=== PATIENT | male | born 1980 | race American Indian/Alaskan Native ===

== ENCOUNTER 2019-05-17 12:09 | Inpatient (IN) | payer SELFPAY ==
--- NOTE | 2019-05-17 12:18 | Emergency Department Report ---
Blank Doc - Documentation Documentation: This is a 38-year-old male that presents with SOB. Was dx with PNA in [place]. This initial assessment/diagnostic orders/clinical plan/treatment(s) is/are subject to change based on patient's health status, clinical progression and re- assessment by fellow clinical providers in the ED. Further treatment and workup at subsequent clinical providers discretion. Patient/guardians urged not to elope from the ED as their condition may be serious if not clinically assessed and managed. Initial orders include: 1- Patient sent to main ed for further evaluation and treatment 2- O2 2 L 3- labs 4- EKG 5- CXR
--- NOTE | 2019-05-17 13:08 | XRay Report ---
CHEST 1 VIEW 05/17/2019 12:35 PM INDICATION / CLINICAL INFORMATION: Dyspnea. COMPARISON: None available. FINDINGS: SUPPORT DEVICES: None. HEART / MEDIASTINUM: No significant abnormality. LUNGS / PLEURA: There are patchy bilateral mid and lower lung parenchymal opacities. There is no sign ificant pleural effusion. No pneumothorax. ADDITIONAL FINDINGS: No significant additional findings. IMPRESSION: 1. Patchy bilateral mid and lower lung parenchymal opacities, probably reflecting atypical infectious process. Signer Name: Shorty Rodriguez MD Signed: 05/17/2019 1:04 PM Workstation Name: [id number]
[2019-05-17 13:16] LABS: Hematocrit 37.1 % (35.5-45.6); Mean Corpuscular HGB Conc 35 % (32-34); Mean Corpuscular Volume 84 fl (84-94); Platelet Count 370 K/mm3 (140-440); Red Blood Count 4.42 M/mm3 (3.65-5.03); Red Cell Distribution Width 13.5 % (13.2-15.2)
[2019-05-17 13:24] LABS: INR 1.14 (0.87-1.13)
[2019-05-17 13:25] LABS: Partial Thromboplastin Time 39.9 Sec. (24.2-36.6)
[2019-05-17 13:34] LABS: BUN/Creatinine Ratio 7; Blood Urea Nitrogen 8 mg/dL (9-20); Calcium 9.7 mg/dL (8.4-10.2); Hemolysis Index 11
--- NOTE | 2019-05-17 13:45 | Emergency Department Report ---
ED General Adult HPI - General Chief complaint: Dyspnea/Respdistress Stated complaint: CHEST PAIN Time Seen by Provider: 05/17/19 12:16 Source: patient Mode of arrival: Ambulatory Limitations: No Limitations - History of Present Illness Initial comments: The patient presents to the emergency department with a chief complaint of shortness of breath that started Wednesday. The patient was admitted to the hospital in [facility] and Kanika multi lobar pneumonia and left AMA yesterday. Upon the patient's arrival his O2 sats are 85%. Patient states that echocardiogram and CT of the chest were done at [facility] and showed no blood clots. -: Sudden Radiation: non-radiation Severity scale (0 -10): 2 Quality: aching Consistency: constant Improves with: none Worsens with: movement Associated Symptoms: denies other symptoms Treatments Prior to Arrival: none - Related Data Home Medications Medication Instructions Recorded Confirmed Last Taken ALBUTEROL Inhaler (OR & NICU) 2 puff IH QID PRN 05/17/19 05/17/19 05/17/19 [Proair] ALBUTEROL NEB's [Proventil] 2.5 mg IH QID PRN 05/17/19 05/17/19 05/17/19 Allergies Allergy/AdvReac Type Severity Reaction Status Date / Time No Known Allergies Allergy Verified 05/17/19 12:18 ED Review of Systems ROS: Stated complaint: CHEST PAIN Other details as noted in HPI Constitutional: denies: chills, fever Eyes: denies: eye pain, eye discharge, vision change ENT: denies: ear pain, throat pain Respiratory: shortness of breath. denies: cough, wheezing Cardiovascular: denies: chest pain, palpitations Endocrine: no symptoms reported Gastrointestinal: denies: abdominal pain, nausea, diarrhea Genitourinary: denies: urgency, dysuria Musculoskeletal: denies: back pain, joint swelling, arthralgia Skin: denies: rash, lesions Neurological: denies: headache, weakness, paresthesias Psychiatric: denies: anxiety, depression Hematological/Lymphatic: denies: easy bleeding, easy bruising ED Past Medical Hx - Past Medical History Previous Medical History?: Yes Hx Asthma: Yes - Surgical History Past Surgical History?: Yes Additional Surgical History: Jaw reconstruction - Social History Smoking Status: Current Every Day Smoker Substance Use Type: Marijuana - Medications Home Medications: Home Medications Medication Instructions Recorded Confirmed Last Taken Type ALBUTEROL Inhaler (OR & NICU) 2 puff IH QID PRN 05/17/19 05/17/19 05/17/19 History [Proair] ALBUTEROL NEB's [Proventil] 2.5 mg IH QID PRN 05/17/19 05/17/19 05/17/19 History ED Physical Exam - General Limitations: No Limitations General appearance: alert, in no apparent distress - Head Head exam: Present: atraumatic, normocephalic - Eye Eye exam: Present: normal appearance, PERRL, EOMI - ENT ENT exam: Present: mucous membranes moist - Neck Neck exam: Present: normal inspection - Respiratory Respiratory exam: Present: normal lung sounds bilaterally, rales. Absent: respiratory distress - Cardiovascular Cardiovascular Exam: Present: normal rhythm, tachycardia. Absent: systolic murmur, diastolic murmur, rubs, gallop - GI/Abdominal GI/Abdominal exam: Present: soft, normal bowel sounds. Absent: distended, tenderness - Rectal Rectal exam: Present: deferred - Extremities Exam Extremities exam: Present: normal inspection - Back Exam Back exam: Present: normal inspection - Neurological Exam Neurological exam: Present: alert, oriented X3, CN II-XII intact. Absent: motor sensory deficit - Psychiatric Psychiatric exam: Present: normal affect, normal mood - Skin Skin exam: Present: warm, dry, intact, normal color. Absent: rash ED Course Vital Signs 05/17/19 12:16 Temperature 98.6 F Pulse Rate 108 H Respiratory 26 H Rate Blood Pressure 193/108 O2 Sat by Pulse 90 Oximetry ED Medical Decision Making - Lab Data Result diagrams: 05/17/19 12:50 05/17/19 12:50 Lab Results 05/17/19 05/17/19 05/17/19 Range/Units 12:50 12:50 12:50 WBC 13.2 H (4.5-11.0) K/mm3 RBC 4.42 (3.65-5.03) M/mm3 Hgb 13.0 (11.8-15.2) gm/dl Hct 37.1 (35.5-45.6) % MCV 84 (84-94) fl MCH 29 (28-32) pg MCHC 35 H (32-34) % RDW 13.5 (13.2-15.2) % Plt Count 370 (140-440) K/mm3 PT 14.3 (12.2-14.9) Sec. INR 1.14 H (0.87-1.13) APTT 39.9 H (24.2-36.6) Sec. Sodium 135 L (137-145) mmol/L Potassium 3.4 L (3.6-5.0) mmol/L Chloride 95.4 L (98-107) mmol/L Carbon Dioxide 26 (22-30) mmol/L Anion Gap 17 mmol/L BUN 8 L (9-20) mg/dL Creatinine 1.1 (0.8-1.5) mg/dL Estimated GFR > 60 ml/min BUN/Creatinine Ratio 7 % Glucose 111 H (75-100) mg/dL Calcium 9.7 (8.4-10.2) mg/dL Troponin T < 0.010 (0.00-0.029) ng/mL NT-Pro-B Natriuret Pep 55.57 (0-450) pg/mL - EKG Data -: EKG Interpreted by Me EKG shows normal: sinus rhythm Rate: normal - Radiology Data Radiology results: report reviewed - Medical Decision Making The patient's medical records were reviewed for the [facility] which show that the patient had echocardiogram done on May 15 shows a normal left ventricular size with the visually estimated ejection fraction of the 60-64% Abnormal diastolic function Tricuspid valve regurgitation and trace in nature CT chest angiogram shows groundglass infiltrates of the upper and mid lungs with no focal pulmonary consolidations or masses no PE Sputum cultures show gram negative rods Results discussed with patient Critical Care Time: Yes Critical care time in (mins) excluding proc time.: 45 Critical care attestation.: If time is entered above; I have spent that time in minutes in the direct care of this critically ill patient, excluding procedure time. ED Disposition Clinical Impression: Hypoxia, Pneumonia Disposition: [id number] OP ADMIT IP TO THIS HOSP Is pt being admited?: Yes Does the pt Need Aspirin: No Condition: Stable
[2019-05-17 15:18] LABS: Basophils % (Manual) 0 % (0.0-1.8); Total Cells Counted 100
[2019-05-17 15:19] LABS: Anisocytosis Few; Stomatocytes Few
[2019-05-17 15:20] LABS: Target Cells Few
[2019-05-17] MEDS ORDERED: LEVAQUIN 500MG/100ML 500 MG/100 ML BAG IV ONE (16:02)
--- NOTE | 2019-05-17 17:33 | History and Physical Report ---
History of Present Illness Chief complaint: I cant breathe,and i feel bad History of present illness: 38 YO Male with Nicotine Dependence, Obesity Hypoventilation Syndrome, Asthma presents to ED for evaluation. Pt states that he has experienced shortness of breath over the past 3 days with persistent symptoms over the same time frame. Pt was seen and evaluated at an outside hospital in [place], [place] on yesterday an diagnosed with Pneumonia, but left AMA. Pt travelled to [place], [place] via private vehicle. Pt presents to [facility] for further care and evaluation. Pt seen and evaluated in ED and found to have Bilateral Pneumonia complicated by Acute Hypoxemic Respiratory Failure with pulse oximetry of 85% on room air in ED. Pt initiated on Pneumonia protocol and admitted to medical floor. Pt denies fever, chills, CP, Palpitations, NVD, Trauma, Unilateral leg swelling, calf pain, hemoptysis, unintentional weight loss,night sweats, individual/family history of DVT/PE/Bleeding, BLood Clotting Disorders. NO prior admission for review. No medication listed for reconciliation at time of admission. CTA chest pending at time of admission. Past History Past Medical History: other (Asthma) Past Surgical History: No surgical history, Other (reviewed) Social history: , lives with family, smoking Family history: no significant family history (reviewed) Medications and Allergies Allergies Allergy/AdvReac Type Severity Reaction Status Date / Time No Known Allergies Allergy Verified 05/17/19 12:18 Home Medications Medication Instructions Recorded Confirmed Last Taken Type ALBUTEROL Inhaler (OR & NICU) 2 puff IH QID PRN 05/17/19 05/17/19 05/17/19 History [Proair] ALBUTEROL NEB's [Proventil] 2.5 mg IH QID PRN 05/17/19 05/17/19 05/17/19 History Active Meds: Active Medications Albuterol (Proventil) 2.5 mg IH QID PRN PRN Reason: Wheezing Review of Systems Constitutional: no weight loss, no weight gain, no fever, no chills Ears, nose, mouth and throat: no ear pain, no ear discharge, no tinnitis, no decreased hearing, no nose pain Cardiovascular: no chest pain, no orthopnea, no palpitations, no rapid/irregular heart beat Respiratory: shortness of breath, no cough, no cough with sputum, no congestion, no wheezing Gastrointestinal: no nausea, no vomiting, no diarrhea, no constipation Genitourinary Male: no hematuria, no flank pain, no discharge, no urinary frequency, no nocturia Rectal: no pain, no incontinence, no bleeding Musculoskeletal: no neck stiffness, no neck pain, no shooting arm pain, no arm numbness/tingling, no shooting leg pain Integumentary: no rash, no pruritis, no redness, no sores, no wounds Neurological: no transient paralysis, no paralysis, no weakness, no parathesias, no numbness, no tingling Psychiatric: no anxiety, no memory loss, no change in sleep habits, no sleep disturbances, no hypersomnia, no change in appetite Endocrine: no cold intolerance, no heat intolerance, no polyphagia, no excessive thirst, no polyuria, no nocturia Hematologic/Lymphatic: no easy bruising, no easy bleeding Allergic/Immunologic: no urticaria, no allergic rhinitis Exam - Constitutional Vitals: Temp Pulse Resp BP Pulse Ox 98.6 F 108 H 26 H 193/108 90 05/17/19 12:16 05/17/19 12:16 05/17/19 12:16 05/17/19 12:16 05/17/19 16:25 General appearance: Present: mild distress - EENT Eyes: Present: PERRL ENT: hearing intact, clear oral mucosa - Neck Neck: Present: supple, normal ROM - Respiratory Respiratory effort: normal Respiratory: bilateral: diminished, wheezing - Cardiovascular Heart Sounds: Present: S1 & S2. Absent: rub, click - Extremities Extremities: pulses symmetrical, No edema Peripheral Pulses: within normal limits - Abdominal General gastrointestinal: Present: soft, non-tender, non-distended, normal bowel sounds Male genitourinary: Present: normal - Integumentary Integumentary: Present: clear, warm, dry - Musculoskeletal Musculoskeletal: gait normal, strength equal bilaterally - Psychiatric Psychiatric: appropriate mood/affect, intact judgment & insight - Neurologic Neurologic: CNII-XII intact, moves all extremities Results - Labs CBC & Chem 7: 05/17/19 12:50 05/17/19 12:50 Labs: Abnormal lab results 05/17/19 05/17/19 05/17/19 Range/Units 12:50 12:50 12:50 WBC 13.2 H (4.5-11.0) K/mm3 MCHC 35 H (32-34) % Seg Neuts % (Manual) 92.0 H (40.0-70.0) % Lymphocytes % (Manual) 6.0 L (13.4-35.0) % Seg Neutrophils # Man 12.1 H (1.8-7.7) K/mm3 Lymphocytes # (Manual) 0.8 L (1.2-5.4) K/mm3 INR 1.14 H (0.87-1.13) APTT 39.9 H (24.2-36.6) Sec. POC ABG pH (7.35-7.45) POC ABG pCO2 (35-45) POC ABG pO2 (80-105) Sodium 135 L (137-145) mmol/L Potassium 3.4 L (3.6-5.0) mmol/L Chloride 95.4 L (98-107) mmol/L BUN 8 L (9-20) mg/dL Glucose 111 H (75-100) mg/dL 05/17/19 Range/Units 16:27 WBC (4.5-11.0) K/mm3 MCHC (32-34) % Seg Neuts % (Manual) (40.0-70.0) % Lymphocytes % (Manual) (13.4-35.0) % Seg Neutrophils # Man (1.8-7.7) K/mm3 Lymphocytes # (Manual) (1.2-5.4) K/mm3 INR (0.87-1.13) APTT (24.2-36.6) Sec. POC ABG pH 7.495 H (7.35-7.45) POC ABG pCO2 32.8 L (35-45) POC ABG pO2 71 L (80-105) Sodium (137-145) mmol/L Potassium (3.6-5.0) mmol/L Chloride (98-107) mmol/L BUN (9-20) mg/dL Glucose (75-100) mg/dL Assessment and Plan - Patient Problems (1) Pneumonia Current Visit: Yes Status: Acute Qualifiers: Laterality: bilateral Lung location: upper lobe of lung Plan to address problem: Pneumonia protocol: IV antibiotic therapy, influenza/HIV testing, supplemental oxygen, nebulizer therapy, NIPPV as clinically indicated, (2) Respiratory failure Current Visit: Yes Status: Acute Qualifiers: Chronicity: acute Respiratory failure complication: hypoxia Qualified Code(s): J96.01 - Acute respiratory failure with hypoxia Plan to address problem: Supplemental oxygen, nebulizer therapy, Supplemental oxygen via NRB mask, ABG, NIPPV as clinically indicated, CTA chest, pulse oximetry (3) Nicotine dependence unspecified, with withdrawal Current Visit: Yes Status: Acute Qualifiers: Nicotine product type: cigarettes Qualified Code(s): F17.213 - Nicotine dependence, cigarettes, with withdrawal Plan to address problem: Smoking cessation counseling: +15minutes (4) SIRS (systemic inflammatory response syndrome) Current Visit: Yes Status: Acute Plan to address problem: Iv antibiotic therapy, CBC, CMP, blood cultures, Rapid HIV, IVF resuscitation therapy (5) Hyponatremia Current Visit: Yes Status: Acute Plan to address problem: IVF resuscitation therapy, repeat bmp in am. (6) Hypokalemia Current Visit: Yes Status: Acute Plan to address problem: dietary repletion, (7) DVT prophylaxis Current Visit: Yes Status: Acute Plan to address problem: SCD to BLE while in bed, prophylactic lovenox
[2019-05-17] MEDS ORDERED: PROVENTIL IH PRN (17:37)
[2019-05-17] MEDS ORDERED: TYLENOL PO ONE (18:34)
[2019-05-17] MEDS ORDERED: TYLENOL ONE (18:38)
[2019-05-17] MEDS ORDERED: SODIUM CHLORIDE FLUSH SYRINGE 10 ML IV PRN (19:29)
[2019-05-17] MEDS ORDERED: ZOFRAN IV PRN (19:29)
[2019-05-17] MEDS ORDERED: NACL 0.9% 1000 ML IV ONE (19:29)
[2019-05-17] MEDS: DUONEB *Not for PRN Use IH SCH (19:54)
[2019-05-17] MEDS: ROCEPHIN/NS 2 GM/100 ML 2 GM/100 ML BAG IV SCH (21:35)
[2019-05-17] MEDS: NACL 0.9% 1000 ML 1,000 ML IV SCH (21:38)
[2019-05-17] MEDS: SODIUM CHLORIDE FLUSH SYRINGE 10 ML IV SCH (22:52)
[2019-05-17] MEDS: ZITHROMAX 500 MG in NACL 0.9% 250ML 250 ML IV SCH (22:53)
[2019-05-18] MEDS: TYLENOL PO PRN ×4 (05:10→22:59)
[2019-05-18] MEDS: NACL 0.9% 1000 ML 1,000 ML IV SCH ×3 (06:00→23:00)
[2019-05-18 06:13] LABS: Hematocrit 34.5 % (35.5-45.6); Mean Corpuscular HGB Conc 35 % (32-34); Mean Corpuscular Volume 83 fl (84-94); Platelet Count 365 K/mm3 (140-440); Red Blood Count 4.15 M/mm3 (3.65-5.03); Red Cell Distribution Width 13.3 % (13.2-15.2)
[2019-05-18 06:29] LABS: BUN/Creatinine Ratio 6; Blood Urea Nitrogen 7 mg/dL (9-20); Calcium 8.7 mg/dL (8.4-10.2); Hemolysis Index 0
--- NOTE | 2019-05-18 07:54 | Progress Note ---
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, improving with fluids Hypokalemia; repleted DVT prophylaxis early ambulation History Interval history: Review of systems Constitutional: Continues to have fevers, and malaise CVS: No chest pain, no orthopnea, no dyspnea on exertion, no pedal edema GI: No abdominal pain, no diarrhea, no vomiting, no constipation Respiratory: no wheezing, no coughing Hospitalist Physical - Physical exam Narrative exam: General.: Appears well, no distress, nontoxic HEENT: Moist mucous membranes, extraocular muscles intact, no lymphadenopathy Neck: supple Cardiac: S1-S2 heard Lungs: clear to auscultation bilaterally Abdomen: soft , nontender, nondistended, bowel sounds positive Extremities: no edema clubbing or cyanosis Skin: no rash or lesions Neurologic: no gross focal deficits Psych: calm, and cooperative - Constitutional Vitals: Temp Pulse Resp BP Pulse Ox 102.8 F H 117 H 24 140/68 91 05/18/19 04:44 05/18/19 04:44 05/18/19 04:44 05/18/19 04:44 05/18/19 04:44 General appearance: Present: mild distress Results - Labs CBC & Chem 7: 05/18/19 05:15 05/18/19 05:15 Labs: Laboratory Last Values WBC 12.6 K/mm3 (4.5-11.0) H 05/18/19 05:15 RBC 4.15 M/mm3 (3.65-5.03) 05/18/19 05:15 Hgb 12.0 gm/dl (11.8-15.2) 05/18/19 05:15 Hct 34.5 % (35.5-45.6) L 05/18/19 05:15 MCV 83 fl (84-94) L 05/18/19 05:15 MCH 29 pg (28-32) 05/18/19 05:15 MCHC 35 % (32-34) H 05/18/19 05:15 RDW 13.3 % (13.2-15.2) 05/18/19 05:15 Plt Count 365 K/mm3 (140-440) 05/18/19 05:15 Add Manual Diff Complete 05/17/19 12:50 Total Counted 100 05/17/19 12:50 Seg Neutrophils % Milling Planer Operator 05/18/19 05:15 Seg Neuts % (Manual) 92.0 % (40.0-70.0) H 05/17/19 12:50 0 % 05/17/19 12:50 6.0 % (13.4-35.0) L 05/17/19 12:50 Reactive Lymphs % (Man) 0 % 05/17/19 12:50 1.0 % (0.0-7.3) 05/17/19 12:50 1.0 % (0.0-4.3) 05/17/19 12:50 0 % (0.0-1.8) 05/17/19 12:50 0 % 05/17/19 12:50 0 % 05/17/19 12:50 0 % 05/17/19 12:50 0 % 05/17/19 12:50 Nucleated RBC % Not Reportable 05/17/19 12:50 Seg Neutrophils # Man 12.1 K/mm3 (1.8-7.7) H 05/17/19 12:50 Band Neutrophils # 0.0 K/mm3 05/17/19 12:50 0.8 K/mm3 (1.2-5.4) L 05/17/19 12:50 Abs React Lymphs (Man) 0.0 K/mm3 05/17/19 12:50 0.1 K/mm3 (0.0-0.8) 05/17/19 12:50 0.1 K/mm3 (0.0-0.4) 05/17/19 12:50 0.0 K/mm3 (0.0-0.1) 05/17/19 12:50 0.0 K/mm3 05/17/19 12:50 0.0 K/mm3 05/17/19 12:50 0.0 K/mm3 05/17/19 12:50 Blast Cells # 0.0 K/mm3 05/17/19 12:50 WBC Morphology Not Reportable 05/17/19 12:50 Hypersegmented Neuts Not Reportable 05/17/19 12:50 Hyposegmented Neuts Not Reportable 05/17/19 12:50 Hypogranular Neuts Not Reportable 05/17/19 12:50 Not Reportable 05/17/19 12:50 Not Reportable 05/17/19 12:50 Not Reportable 05/17/19 12:50 Not Reportable 05/17/19 12:50 Not Reportable 05/17/19 12:50 Not Reportable 05/17/19 12:50 Appears normal 05/17/19 12:50 Not Reportable 05/17/19 12:50 Plt Clumps, EDTA Not Reportable 05/17/19 12:50 Not Reportable 05/17/19 12:50 Not Reportable 05/17/19 12:50 Not Reportable 05/17/19 12:50 Plt Morphology Comment Not Reportable 05/17/19 12:50 RBC Morphology Not Reportable 05/17/19 12:50 Dimorphic RBCs Not Reportable 05/17/19 12:50 Not Reportable 05/17/19 12:50 Not Reportable 05/17/19 12:50 Not Reportable 05/17/19 12:50 Few 05/17/19 12:50 Not Reportable 05/17/19 12:50 Not Reportable 05/17/19 12:50 Not Reportable 05/17/19 12:50 Not Reportable 05/17/19 12:50 Not Reportable 05/17/19 12:50 Few 05/17/19 12:50 Not Reportable 05/17/19 12:50 Not Reportable 05/17/19 12:50 Few 05/17/19 12:50 Not Reportable 05/17/19 12:50 Not Reportable 05/17/19 12:50 Not Reportable 05/17/19 12:50 Not Reportable 05/17/19 12:50 Not Reportable 05/17/19 12:50 Not Reportable 05/17/19 12:50 Not Reportable 05/17/19 12:50 Acanthocytes (Spur) Not Reportable 05/17/19 12:50 Rouleaux Not Reportable 05/17/19 12:50 Not Reportable 05/17/19 12:50 Not Reportable 05/17/19 12:50 Not Reportable 05/17/19 12:50 Not Reportable 05/17/19 12:50 Hem Pathologist Commnt No 05/17/19 12:50 PT 14.3 Sec. (12.2-14.9) 05/17/19 12:50 INR 1.14 (0.87-1.13) H 05/17/19 12:50 APTT 39.9 Sec. (24.2-36.6) H 05/17/19 12:50 POC ABG pH 7.495 (7.35-7.45) H 05/17/19 16:27 POC ABG pCO2 32.8 (35-45) L 05/17/19 16:27 POC ABG pO2 71 (80-105) L 05/17/19 16:27 POC ABG HCO3 25.3 (22-26 mml/L) 05/17/19 16:27 POC ABG Total CO2 26 (23-27mmol/L) 05/17/19 16:27 POC ABG O2 Sat 96 05/17/19 16:27 POC ABG Base Excess 2 ((-2) - (+3)mmol/L) 05/17/19 16:27 28 % 05/17/19 16:27 Sodium 139 mmol/L (137-145) 05/18/19 05:15 Potassium 3.9 mmol/L (3.6-5.0) 05/18/19 05:15 Chloride 98.5 mmol/L (98-107) 05/18/19 05:15 Carbon Dioxide 26 mmol/L (22-30) 05/18/19 05:15 18 mmol/L 05/18/19 05:15 BUN 7 mg/dL (9-20) L 05/18/19 05:15 1.1 mg/dL (0.8-1.5) 05/18/19 05:15 Estimated GFR > 60 ml/min 05/18/19 05:15 6 % 05/18/19 05:15 Glucose 125 mg/dL (75-100) H 05/18/19 05:15 Lactic Acid 0.90 mmol/L (0.7-2.0) 05/17/19 20:06 Calcium 8.7 mg/dL (8.4-10.2) 05/18/19 05:15 < 0.010 ng/mL (0.00-0.029) 05/17/19 12:50 NT-Pro-B Natriuret Pep 55.57 pg/mL (0-450) 05/17/19 12:50 HIV 1&2 Antibody Rapid Non react (Non React) 05/17/19 20:06 Non react (Non React) 05/17/19 20:06 Active Medications - Current Medications Current Medications: Generic Name Dose Route Start Last Admin Trade Name Janette PRN Reason Stop Dose Admin Acetaminophen 650 mg 05/17/19 19:29 05/18/19 05:10 Tylenol PO 650 mg Q4H PRN Administration Pain MILD(1-3)/Fever >100.5/CARRERA Albuterol 2.5 mg 05/17/19 17:37 Proventil IH QIDRT PRN Wheezing Albuterol/Ipratropium 1 ampul 05/17/19 20:00 05/17/19 19:54 Duoneb *Not For Prn Use* IH 1 ampul TIDRT KEMAR Administration Ceftriaxone Sodium 2 gm in 100 mls @ 200 mls/hr 05/17/19 20:00 05/17/19 21:35 Rocephin/Ns 2 Gm/100 Ml IV 200 mls/hr Q24H KEMAR Administration Protocol Azithromycin 500 mg/ Sodium 250 mls @ 250 mls/hr 05/17/19 20:30 05/17/19 22:53 Chloride IV 250 mls/hr Q24H KEMAR Administration Protocol Sodium Chloride 1,000 mls @ 125 mls/hr 05/17/19 22:00 05/18/19 06:00 Nacl 0.9% 1000 Ml IV 125 mls/hr DIRECT KEMAR Administration Ondansetron HCl 4 mg 05/17/19 19:29 Zofran IV Q8H PRN Nausea And Vomiting Sodium Chloride 10 ml 05/17/19 22:00 05/17/19 22:52 Sodium Chloride Flush Syringe 10 Ml IV 10 ml BID KEMAR Administration Sodium Chloride 10 ml 05/17/19 19:29 Sodium Chloride Flush Syringe 10 Ml IV PRN PRN LINE FLUSH
[2019-05-18] MEDS: SODIUM CHLORIDE FLUSH SYRINGE 10 ML IV SCH ×2 (09:35→21:04)
[2019-05-18] MEDS: DUONEB *Not for PRN Use IH SCH ×3 (11:44→20:35)
[2019-05-18 13:32] LABS: Band Neutrophils # (Manual) 0.3 K/mm3; Total Cells Counted 100
[2019-05-18 13:33] LABS: Hypochromasia Few; Platelet Estimate Consistent w Auto
[2019-05-18] MEDS: ROCEPHIN/NS 2 GM/100 ML 2 GM/100 ML BAG IV SCH (21:03)
[2019-05-18] MEDS: ZITHROMAX 500 MG in NACL 0.9% 250ML 250 ML IV SCH (21:04)
[2019-05-18] MEDS ORDERED: APRESOLINE IV SCH (22:00)
[2019-05-19] MEDS ORDERED: APRESOLINE IV PRN (00:03)
[2019-05-19] MEDS: TYLENOL PO PRN ×2 (05:23→17:20)
[2019-05-19] MEDS: NACL 0.9% 1000 ML 1,000 ML IV SCH (05:24)
[2019-05-19] MEDS: DUONEB *Not for PRN Use IH SCH ×3 (09:17→21:13)
--- NOTE | 2019-05-19 15:34 | Progress Note ---
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, improving with fluids Hypokalemia; repleted DVT prophylaxis early ambulation History Interval history: Review of systems Constitutional: Continues to have fevers, and malaise CVS: No chest pain, no orthopnea, no dyspnea on exertion, no pedal edema GI: No abdominal pain, no diarrhea, no vomiting, no constipation Respiratory: Complaining of coughing Hospitalist Physical - Physical exam Narrative exam: General.: Appears well, no distress, nontoxic HEENT: Moist mucous membranes, extraocular muscles intact, no lymphadenopathy Neck: supple Cardiac: S1-S2 heard Lungs: clear to auscultation bilaterally Abdomen: soft , nontender, nondistended, bowel sounds positive Extremities: no edema clubbing or cyanosis Skin: no rash or lesions Neurologic: no gross focal deficits Psych: calm, and cooperative - Constitutional Vitals: Temp Pulse Resp BP Pulse Ox 100.7 F H 107 H 22 129/61 96 05/19/19 04:47 05/19/19 13:13 05/19/19 13:13 05/19/19 04:47 05/19/19 09:17 General appearance: Present: mild distress Results - Labs CBC & Chem 7: 05/18/19 05:15 05/18/19 05:15 Labs: Laboratory Last Values WBC 12.6 K/mm3 (4.5-11.0) H 05/18/19 05:15 RBC 4.15 M/mm3 (3.65-5.03) 05/18/19 05:15 Hgb 12.0 gm/dl (11.8-15.2) 05/18/19 05:15 Hct 34.5 % (35.5-45.6) L 05/18/19 05:15 MCV 83 fl (84-94) L 05/18/19 05:15 MCH 29 pg (28-32) 05/18/19 05:15 MCHC 35 % (32-34) H 05/18/19 05:15 RDW 13.3 % (13.2-15.2) 05/18/19 05:15 Plt Count 365 K/mm3 (140-440) 05/18/19 05:15 Add Manual Diff Complete 05/18/19 05:15 Total Counted 100 05/18/19 05:15 Seg Neutrophils % Booster Pump Oiler 05/18/19 05:15 Seg Neuts % (Manual) 90.0 % (40.0-70.0) H 05/18/19 05:15 2.0 % 05/18/19 05:15 4.0 % (13.4-35.0) L 05/18/19 05:15 Reactive Lymphs % (Man) 0 % 05/18/19 05:15 2.0 % (0.0-7.3) 05/18/19 05:15 1.0 % (0.0-4.3) 05/18/19 05:15 1.0 % (0.0-1.8) 05/18/19 05:15 0 % 05/18/19 05:15 0 % 05/18/19 05:15 0 % 05/18/19 05:15 0 % 05/18/19 05:15 Nucleated RBC % Not Reportable 05/18/19 05:15 Seg Neutrophils # Man 11.3 K/mm3 (1.8-7.7) H 05/18/19 05:15 Band Neutrophils # 0.3 K/mm3 05/18/19 05:15 0.5 K/mm3 (1.2-5.4) L 05/18/19 05:15 Abs React Lymphs (Man) 0.0 K/mm3 05/18/19 05:15 0.3 K/mm3 (0.0-0.8) 05/18/19 05:15 0.1 K/mm3 (0.0-0.4) 05/18/19 05:15 0.1 K/mm3 (0.0-0.1) 05/18/19 05:15 0.0 K/mm3 05/18/19 05:15 0.0 K/mm3 05/18/19 05:15 0.0 K/mm3 05/18/19 05:15 Blast Cells # 0.0 K/mm3 05/18/19 05:15 WBC Morphology Not Reportable 05/18/19 05:15 Hypersegmented Neuts Not Reportable 05/18/19 05:15 Hyposegmented Neuts Not Reportable 05/18/19 05:15 Hypogranular Neuts Not Reportable 05/18/19 05:15 Not Reportable 05/18/19 05:15 Not Reportable 05/18/19 05:15 Not Reportable 05/18/19 05:15 Not Reportable 05/18/19 05:15 Not Reportable 05/18/19 05:15 Not Reportable 05/18/19 05:15 Consistent w auto 05/18/19 05:15 Not Reportable 05/18/19 05:15 Plt Clumps, EDTA Not Reportable 05/18/19 05:15 Not Reportable 05/18/19 05:15 Not Reportable 05/18/19 05:15 Not Reportable 05/18/19 05:15 Plt Morphology Comment Not Reportable 05/18/19 05:15 RBC Morphology Not Reportable 05/18/19 05:15 Dimorphic RBCs Not Reportable 05/18/19 05:15 Not Reportable 05/18/19 05:15 Few 05/18/19 05:15 Not Reportable 05/18/19 05:15 Not Reportable 05/18/19 05:15 Not Reportable 05/18/19 05:15 Not Reportable 05/18/19 05:15 Not Reportable 05/18/19 05:15 Not Reportable 05/18/19 05:15 Not Reportable 05/18/19 05:15 Not Reportable 05/18/19 05:15 Not Reportable 05/18/19 05:15 Not Reportable 05/18/19 05:15 Few 05/17/19 12:50 Not Reportable 05/18/19 05:15 Not Reportable 05/18/19 05:15 Not Reportable 05/18/19 05:15 Not Reportable 05/18/19 05:15 Not Reportable 05/18/19 05:15 Not Reportable 05/18/19 05:15 Not Reportable 05/18/19 05:15 Acanthocytes (Spur) Not Reportable 05/18/19 05:15 Rouleaux Not Reportable 05/18/19 05:15 Not Reportable 05/18/19 05:15 Not Reportable 05/18/19 05:15 Not Reportable 05/18/19 05:15 Not Reportable 05/18/19 05:15 Hem Pathologist Commnt No 05/18/19 05:15 PT 14.3 Sec. (12.2-14.9) 05/17/19 12:50 INR 1.14 (0.87-1.13) H 05/17/19 12:50 APTT 39.9 Sec. (24.2-36.6) H 05/17/19 12:50 POC ABG pH 7.495 (7.35-7.45) H 05/17/19 16:27 POC ABG pCO2 32.8 (35-45) L 05/17/19 16:27 POC ABG pO2 71 (80-105) L 05/17/19 16:27 POC ABG HCO3 25.3 (22-26 mml/L) 05/17/19 16:27 POC ABG Total CO2 26 (23-27mmol/L) 05/17/19 16:27 POC ABG O2 Sat 96 05/17/19 16:27 POC ABG Base Excess 2 ((-2) - (+3)mmol/L) 05/17/19 16:27 28 % 05/17/19 16:27 Sodium 139 mmol/L (137-145) 05/18/19 05:15 Potassium 3.9 mmol/L (3.6-5.0) 05/18/19 05:15 Chloride 98.5 mmol/L (98-107) 05/18/19 05:15 Carbon Dioxide 26 mmol/L (22-30) 05/18/19 05:15 18 mmol/L 05/18/19 05:15 BUN 7 mg/dL (9-20) L 05/18/19 05:15 1.1 mg/dL (0.8-1.5) 05/18/19 05:15 Estimated GFR > 60 ml/min 05/18/19 05:15 6 % 05/18/19 05:15 Glucose 125 mg/dL (75-100) H 05/18/19 05:15 Lactic Acid 0.90 mmol/L (0.7-2.0) 05/17/19 20:06 Calcium 8.7 mg/dL (8.4-10.2) 05/18/19 05:15 < 0.010 ng/mL (0.00-0.029) 05/17/19 12:50 NT-Pro-B Natriuret Pep 55.57 pg/mL (0-450) 05/17/19 12:50 HIV 1&2 Antibody Rapid Non react (Non React) 05/18/19 12:49 Non react (Non React) 05/18/19 12:49 Active Medications - Current Medications Current Medications: Generic Name Dose Route Start Last Admin Trade Name Freq PRN Reason Stop Dose Admin Acetaminophen 650 mg 05/17/19 19:29 05/19/19 05:23 Tylenol PO 650 mg Q4H PRN Administration Pain MILD(1-3)/Fever >100.5/CARRERA Albuterol 2.5 mg 05/17/19 17:37 Proventil IH QIDRT PRN Wheezing Albuterol/Ipratropium 1 ampul 05/17/19 20:00 05/19/19 13:03 Duoneb *Not For Prn Use* IH 1 ampul TIDRT KEMAR Administration Hydralazine HCl 20 mg 05/19/19 00:03 Apresoline IV Q4H PRN FOR BP.150/90 Ceftriaxone Sodium 2 gm in 100 mls @ 200 mls/hr 05/17/19 20:00 05/18/19 21:03 Rocephin/Ns 2 Gm/100 Ml IV 200 mls/hr Q24H KEMAR Administration Protocol Azithromycin 500 mg/ Sodium 250 mls @ 250 mls/hr 05/17/19 20:30 05/18/19 21:04 Chloride IV 05/21/19 21:29 250 mls/hr Q24H KEMAR Administration Protocol Sodium Chloride 1,000 mls @ 125 mls/hr 05/17/19 22:00 05/19/19 05:24 Nacl 0.9% 1000 Ml IV 125 mls/hr DIRECT KEMAR Administration Ondansetron HCl 4 mg 05/17/19 19:29 05/18/19 18:08 Zofran IV 4 mg Q8H PRN Administration Nausea And Vomiting Sodium Chloride 10 ml 05/17/19 22:00 05/18/19 21:04 Sodium Chloride Flush Syringe 10 Ml IV 10 ml BID KEMAR Administration Sodium Chloride 10 ml 05/17/19 19:29 Sodium Chloride Flush Syringe 10 Ml IV PRN PRN LINE FLUSH
[2019-05-19] MEDS: SODIUM CHLORIDE FLUSH SYRINGE 10 ML IV SCH ×2 (17:25→22:07)
--- NOTE | 2019-05-19 17:47 | XRay Report ---
CHEST 2 VIEWS INDICATION / CLINICAL INFORMATION: Fever. Difficulty breathing and wheezing during exam. COMPARISON: 05/17/2019. FINDINGS: SUPPORT DEVICES: None. HEART / MEDIASTINUM: The heart size and pulmonary vasculature are probably normal for technique. LUNGS / PLEURA: Mild patchy parenchymal disease in both lungs has improved. There is no evidence of p leural effusion on the lateral view. No pneumothorax. ADDITIONAL FINDINGS: No significant additional findings. IMPRESSION: Improving bilateral parenchymal disease. Signer Name: Liborio Lee MD Signed: 05/19/2019 5:43 PM Workstation Name: [id number]
[2019-05-19] MEDS: ZITHROMAX 500 MG in NACL 0.9% 250ML 250 ML IV SCH (22:06)
[2019-05-19] MEDS: ROCEPHIN/NS 2 GM/100 ML 2 GM/100 ML BAG IV SCH (22:06)
[2019-05-20] MEDS ORDERED: NORCO 10/325 PO PRN (03:07)
[2019-05-20] MEDS: NACL 0.9% 1000 ML 1,000 ML IV SCH ×2 (06:02→15:23)
[2019-05-20] MEDS: TESSALON PERLES PO SCH ×2 (06:02→13:30)
[2019-05-20] MEDS: DUONEB *Not for PRN Use IH SCH ×2 (08:57→13:00)
[2019-05-20] MEDS: SODIUM CHLORIDE FLUSH SYRINGE 10 ML IV SCH (10:19)
[2019-05-20 13:57] VITALS: BP 147/91
--- NOTE | 2019-05-20 15:56 | Discharge Summary ---
Providers - Providers Date of Admission: 05/17/19 17:24 Attending physician: WICHO FELIPE MD Primary care physician: [facility] MD DON Hospitalization Condition: Stable Hospital course: 38-year-old man with history of tobacco and marijuana abuse and asthma who presented with shortness of breath. He was found to have bilateral pneumonia. He was treated with antibiotics, fevers resolved, cough was improving. Patient is discharged on a course of oral antibiotics. His electrolytes were repleted, he received IV fluids and sepsis protocol. Diagnoses Sepsis due to pneumonia Acute respiratory failure Hypokalemia Hyponatremia Tobacco and marijuana abuse Preventative health counseling was performed for 17 minutes Smoking cessation counseling was performed for 10 minutes Disposition: - TO HOME OR SELFCARE Time spent for discharge: 33 mins Core Measure Documentation - Palliative Care Palliative Care/ Comfort Measures: Not Applicable - Core Measures Any of the following diagnoses?: none Exam - Constitutional Vitals: Temp Pulse Resp BP Pulse Ox 99.5 F 96 H 20 147/91 90 05/20/19 13:46 05/20/19 13:46 05/20/19 13:46 05/20/19 13:46 05/20/19 13:46 General appearance: Present: no acute distress, well-nourished - EENT Eyes: Present: PERRL ENT: hearing intact, clear oral mucosa - Neck Neck: Present: supple, normal ROM - Respiratory Respiratory effort: normal Respiratory: bilateral: CTA - Cardiovascular Heart Sounds: Present: S1 & S2. Absent: rub, click - Extremities Extremities: pulses symmetrical, No edema Peripheral Pulses: within normal limits - Abdominal General gastrointestinal: Present: soft, non-tender, non-distended, normal bowel sounds Male genitourinary: Present: normal - Integumentary Integumentary: Present: clear, warm, dry - Musculoskeletal Musculoskeletal: gait normal, strength equal bilaterally - Psychiatric Psychiatric: appropriate mood/affect, intact judgment & insight - Neurologic Neurologic: CNII-XII intact, moves all extremities Plan Follow up with: LD MARTELL MD [Primary Care Provider] - 3-5 Days Prescriptions: Amoxicillin/Potassium Clav [Augmentin 875-125 Tablet] 1 each PO BID #10 tablet ALBUTEROL Inhaler (OR & NICU) [ProAir HFA Inhaler] 2 puff IH QID PRN #1 inha PRN Reason: Shortness Of Breath Benzonatate [Tessalon Perles] 200 mg PO Q8HR #30 capsule Azithromycin [Zithromax TAB] 250 mg PO QDAY #2 tablet
== END 2019-05-20 19:30 | disposition home or self-care (01) | DRG 871 ==
LOC: ED 12:09 → 3A 17:24
PROVIDERS: ADMIT Internal Medicine; ATTEND Internal Medicine
PROC: 4A033R1 Measurement of Arterial Saturation, Peripheral, Percutaneous Approach (ICD-10-PCS; principal; 2019-05-17)
DX: A41.9 Sepsis, unspecified organism (principal); J96.01 Acute respiratory failure with hypoxia; J18.1 Lobar pneumonia, unspecified organism; E87.1 Hypo-osmolality and hyponatremia; E66.2 Morbid (severe) obesity with alveolar hypoventilation; Z68.41 Body mass index [BMI] 40.0-44.9, adult; F17.213 Nicotine dependence, cigarettes, with withdrawal; E87.6 Hypokalemia; F12.10 Cannabis abuse, uncomplicated; Z71.6 Tobacco abuse counseling; Z71.89 Other specified counseling; Z79.899 Other long term (current) drug therapy
CPT/HCPCS: 36415; 71045; 71046; 80048; 82140; 82803; 83880; 84484; 85007; 85025; 85610; 85730; 87040; 87806; 93005; 93010; 94640; 94667; 94760; 96365; 96366; 96375; 99291; G0378; J0456; J0696; J1956; J2405; J7030; J7050

== ENCOUNTER 2019-12-04 11:34 | Outpatient (CLI) | payer BC ==
--- NOTE | 2019-12-04 14:49 | XRay Report ---
CHEST 2 VIEWS INDICATION / CLINICAL INFORMATION: R05 COUGH. COMPARISON: 05/19/2019 FINDINGS: SUPPORT DEVICES: None. HEART / MEDIASTINUM: No significant abnormality. LUNGS / PLEURA: No significant pulmonary or pleural abnormality. No pneumothorax. ADDITIONAL FINDINGS: No significant additional findings. IMPRESSION: No significant abnormality or interval change from 05/19/2019 Signer Name: Juan Carlos Guerin MD FACR Signed: 12/04/2019 2:45 PM Workstation Name: [id number]
== END 2019-12-04 11:35 | disposition home or self-care (01) ==
LOC: LAB 11:34
PROVIDERS: ATTEND Internal Medicine
DX: R05 Cough (principal); R07.9 Chest pain, unspecified; Z00.00 Encounter for general adult medical examination without abnormal findings; Z13.1 Encounter for screening for diabetes mellitus; E78.2 Mixed hyperlipidemia; N40.1 Benign prostatic hyperplasia with lower urinary tract symptoms
CPT/HCPCS: 71046; 93005; 93010

== ENCOUNTER 2019-12-11 13:04 | Outpatient (CLI) | payer BC ==
[2019-12-11 13:33] LABS: Hematocrit 39.7 % (35.5-45.6); Hemoglobin 13.8 gm/dl (11.8-15.2); Mean Corpuscular HGB Conc 35 % (32-34); Mean Corpuscular Volume 84 fl (84-94); Platelet Count 306 K/mm3 (140-440); Red Cell Distribution Width 13.9 % (13.2-15.2)
[2019-12-11 13:52] LABS: Alanine Aminotransferase 23 units/L (7-56); Albumin 4.2 g/dL (3.9-5); BUN/Creatinine Ratio 11; Blood Urea Nitrogen 11 mg/dL (9-20); Calcium 9.2 mg/dL (8.4-10.2); Chol/HDL Ratio 4.12 %; HDL Cholesterol 47 mg/dL (40-59); Hemolysis Index 0; LDL Cholesterol,Direct 133 mg/dL (50-130)
== END 2019-12-11 13:05 | disposition home or self-care (01) ==
LOC: LAB 13:04
PROVIDERS: ATTEND Internal Medicine
DX: Z00.00 Encounter for general adult medical examination without abnormal findings (principal); Z13.1 Encounter for screening for diabetes mellitus; R53.83 Other fatigue; E78.2 Mixed hyperlipidemia; N40.1 Benign prostatic hyperplasia with lower urinary tract symptoms
CPT/HCPCS: 36415; 80053; 80061; 82306; 83036; 84153; 84443; 85027

== ENCOUNTER 2020-01-15 11:00 | Outpatient (CLI) | payer BC | END 2020-01-15 11:01 | disposition home or self-care (01) | LOC: SLR 11:00 | PROVIDERS: ATTEND Otolaryngology | DX: G47.33 Obstructive sleep apnea (adult) (pediatric) (principal); R40.0 Somnolence | CPT/HCPCS: 95810 ==

== ENCOUNTER 2021-06-16 11:12 | Outpatient (CLI) | payer BC ==
[2021-06-16 12:18] LABS: Hematocrit 37.7 % (35.5-45.6); Hemoglobin 13.4 gm/dl (11.8-15.2); Mean Corpuscular HGB Conc 36 % (32-34); Mean Corpuscular Volume 84 fl (84-94); Platelet Count 298 K/mm3 (140-440); Red Cell Distribution Width 13.8 % (13.2-15.2)
[2021-06-16 12:24] LABS: Alanine Aminotransferase 20 units/L (7-56); Albumin 4.3 g/dL (3.9-5); BUN/Creatinine Ratio 21; Blood Urea Nitrogen 17 mg/dL (9-20); Calcium 9.2 mg/dL (8.4-10.2); Chol/HDL Ratio 3.37 %; HDL Cholesterol 56 mg/dL (40-59); Hemolysis Index 1; LDL Cholesterol,Direct 133 mg/dL (50-130)
--- NOTE | 2021-06-16 13:26 | XRay Report ---
CHEST 2 VIEWS INDICATION / CLINICAL INFORMATION: DYSPNEA. COMPARISON: December 04, 2019 FINDINGS: SUPPORT DEVICES: None. HEART / MEDIASTINUM: No significant abnormality. LUNGS / PLEURA: No significant pulmonary or pleural abnormality. No pneumothorax. ADDITIONAL FINDINGS: No significant additional findings. IMPRESSION: 1. No acute findings. Signer Name: Nam Fernando MD Signed: 06/16/2021 1:21 PM Workstation Name: [id number]
== END 2021-06-16 11:13 | disposition home or self-care (01) ==
LOC: XRAY 11:12
PROVIDERS: ATTEND Internal Medicine
DX: Z00.00 Encounter for general adult medical examination without abnormal findings (principal)
CPT/HCPCS: 36415; 71046; 80053; 80061; 83036; 84443; 85027

== ENCOUNTER 2021-06-26 08:01 | Day surgery (SDC) | payer BC ==
[~2021-06-26 08:01] MED LIST: LIDOCAINE MPF (2%) 20 MG/1 ML VIAL 5 ML ONE; SODIUM CHLORIDE 0.9% 1000 ML 1,000 ML IV SCH; WATER FOR IRRIG STERILE 1,000 ML BOTTLE ONE; propofoL 200 MG/20 ML VIAL IV ONE
--- NOTE | 2021-06-26 08:35 | Anesthesia Consultation ---
Anesthesia Consult and Med Hx Date of service: 06/26/21 - Airway Anesthetic Teeth Evaluation: Good ROM Head & Neck: Adequate Mental/Hyoid Distance: Adequate Mallampati Class: Class III Intubation Access Assessment: Possibly Difficult - Pulmonary Exam CTA: Yes - Cardiac Exam Cardiac Exam: RRR - Pre-Operative Health Status ASA Pre-Surgery Classification: ASA3 Proposed Anesthetic Plan: MAC - Pulmonary Hx Smoking: Yes (smoked marijuana this am at 4.) Hx Asthma: Yes (albuterol inhaler this morning before arriving at hospital. ) Home Oxygen Therapy: No Hx Sleep Apnea: Yes ( reports patient needs sleep study for snorning and apneic episodes) - Cardiovascular System Hx Hypertension: No Hx Cardia Arrhythmia: No - Central Nervous System Hx Neuromuscular Disorder: No - Gastrointestinal Hx Gastroesophageal Reflux Disease: No - Endocrine Hx Renal Disease: No Hx Liver Disease: No - Hematic Hx Anemia: No - Other Systems Hx Alcohol Use: Yes (drinks moonshine and idalia shots on the weekend. ) Hx Obesity: Yes (BMI 44) - Additional Comments Anesthesia Medical History Comments: s/p metal plates bilateral jaws with screws (2004); no GAC, no FHAC.
--- NOTE | 2021-06-26 08:35 | Anesthesia Day of Surgery ---
Anesthesia Day of Surgery - Day of Surgery Patient Examined: Yes Patient H&P Reviewed: Yes Patient is NPO: Yes Beta Blockers: No Cardiac Clearance: No Pulmonary Clearance: No Noah's Test: N/A
--- NOTE | 2021-06-26 09:39 | Short Stay Summary ---
Short Stay Documentation Date of service: 06/26/21 Narrative H&P: The patient is a 41 yo aam who presents for colonoscopy. Family h/o colon cancer in first degree relatives. - History Past Medical History: other (no changes from clinic note) Past Surgical History: No surgical history Social history: no significant social history - Allergies and Medications Current Medications: Allergies No Known Allergies Allergy (Verified 05/17/19 12:18) Home Medications Medication Instructions Recorded Confirmed Last Taken Type ALBUTEROL NEB's [Proventil 0.083% 2.5 mg IH QID PRN 05/17/19 05/17/19 05/17/19 History NEBS] Albuterol Mdi (or & Nicu Only) 2 puff IH QID PRN #1 inha 05/20/19 Unknown Rx [ProAir HFA Inhaler] Active Medications Sodium Chloride (Nacl 0.9% 1000 Ml) 1,000 mls @ 50 mls/hr IV DIRECT KEMAR Last Admin: 06/26/21 08:49 Dose: 50 mls/hr Documented by: - Physical exam General appearance: no acute distress Lungs: Clear to auscultation Heart: Regular rate Gastrointestinal: normal - Brief post op/procedure progress note Date of procedure: 06/26/21 Pre-op diagnosis: family history of colon cancer Post-op diagnosis: other (colon polyps x 2, diverticulosis) Procedure: colonoscopy with biopsy Anesthesia: MAC Findings: small colon polyps x 2 diverticulosis Surgeon: HARRIET ADHIKARI Estimated blood loss: minimal Pathology: list (Jar a - descending colon polyp; jar B - sigmoid polyp) Specimen disposition: to lab - Disposition Condition at discharge: Good Disposition: 01 HOME / SELF CARE / HOMELESS Short Stay Discharge Plan Follow up with: WENDY MERIDA MD [Primary Care Provider] - 7 Days
--- NOTE | 2021-06-26 09:41 | Operative Report ---
Operative Report Operative Report: Colonoscopy Procedure Note with biopsy Date of procedure: 06/26/2021 Endoscopist: Geovani Vázquez Pre-op diagnosis/indication: Screening for colorectal cancer in patient at high risk (family history of colon cancer in first degree relative) Post-op diagnosis: Colon polyps, diverticulosis MEDICATIONS: MAC COMPLICATIONS: No immediate complications ESTIMATED BLOOD LOSS: Minimal DESCRIPTION OF PROCEDURE: After consent was obtained, the patient was placed in the left lateral decubitis position. The olympus colonoscope was inserted into the rectum and advanced to the cecum without difficulty. The patient tolerated the procedure well. The views of the mucosa were good. The quality of prep was good. The patients vital signs were monitored continuously throughout the procedure. FINDINGS: There was an ~2 mm sessile polyp in the descending colon. The polyp was removed with cold biopsy forceps and retrieved. There was an ~2 mm sessile polyp in the sigmoid colon. The polyp was removed with cold biopsy forceps and retrieved. There were multiple small mouthed diverticula in the left side of the colon. IMPRESSION: 1. Colon polyps x 2 removed with cold biopsy forceps 2. Left sided diverticulosis RECOMMENDATIONS: -high fiber diet daily -follow-up pathology -repeat colonoscopy in 5 years for surveillance
[2021-06-26 10:29] VITALS: BP 127/75
--- NOTE | 2021-06-26 12:32 | Post Anesthesia Evaluation ---
- Post Anesthesia Evaluation Patient Participated: Yes Airway Patent: Yes Stable Respiratory Function: Yes Nausea/Vomiting: No Temp > 96.8F: Yes Pain Manageable: Yes Adequeate Hydration: Yes Anesthesia Complications: No
== END 2021-06-26 10:22 | disposition home or self-care (01) ==
LOC: GIO 08:01
PROVIDERS: ATTEND Internal Medicine Gastroenterology
DX: Z12.11 Encounter for screening for malignant neoplasm of colon (principal); K57.30 Diverticulosis of large intestine without perforation or abscess without bleeding; K63.5 Polyp of colon; K63.89 Other specified diseases of intestine; E66.9 Obesity, unspecified; J45.909 Unspecified asthma, uncomplicated; E87.6 Hypokalemia; G47.30 Sleep apnea, unspecified; F17.210 Nicotine dependence, cigarettes, uncomplicated; Z80.0 Family history of malignant neoplasm of digestive organs; Z68.41 Body mass index [BMI] 40.0-44.9, adult; Z79.899 Other long term (current) drug therapy; Z98.890 Other specified postprocedural states
CPT/HCPCS: 45380; 88305; J2704; J7030

== ENCOUNTER 2021-06-30 11:00 | Outpatient (CLI) | payer BC | END 2021-06-30 11:01 | disposition home or self-care (01) | LOC: SLR 11:00 | PROVIDERS: ATTEND Otolaryngology | DX: G47.33 Obstructive sleep apnea (adult) (pediatric) (principal) | CPT/HCPCS: 95811 ==

== ENCOUNTER 2022-04-09 14:36 | Emergency (ER) | payer BC ==
[2022-04-09] MEDS ORDERED: SODIUM CHLORIDE 0.9% 1000 ML 1,000 ML IV ONE (16:04)
[2022-04-09 16:07] VITALS: BP 162/94
--- NOTE | 2022-04-09 16:10 | XRay Report ---
CHEST 1 VIEW INDICATION / CLINICAL INFORMATION: sob STUDY TIME: 1541 COMPARISON: 06/16/2021 FINDINGS: SUPPORT DEVICES: None HEART / MEDIASTINUM: No significant abnormality. LUNGS / PLEURA: Poor degree of inspiration is seen. No definite acute infiltrates. No pneumothorax. ADDITIONAL FINDINGS: No significant additional findings. Signer Name: Dewayne Carolina MD Signed: 04/09/2022 4:06 PM Workstation Name: [id number]
[2022-04-09] MEDS ORDERED: ACETAMINOPHEN 500 MG TAB PO ONE (16:33)
[2022-04-09 18:31] LABS: Alanine Aminotransferase 14 units/L (7-56); Albumin 4.5 g/dL (3.9-5); BUN/Creatinine Ratio 15; Blood Urea Nitrogen 15 mg/dL (9-20); Calcium 9.5 mg/dL (8.4-10.2); Hemolysis Index 0
[2022-04-09 19:31] LABS: Basophils # (Auto) 0.1 K/mm3 (0.0-0.1); Basophils % (Auto) 0.9 % (0.0-1.8); Eosinophils % (Auto) 0.6 % (0.0-4.3); Lymphocytes # (Auto) 0.3 K/mm3 (1.2-5.4); Lymphocytes % (Auto) 4.8 % (13.4-35.0); Mean Corpuscular HGB Conc 36 % (32-34); Mean Corpuscular Volume 84 fl (84-94); Monocytes # (Auto) 0.9 K/mm3 (0.0-0.8); Monocytes % (Auto) 14.4 % (0.0-7.3); Platelet Count 287 K/mm3 (140-440); Red Blood Count 4.36 M/mm3 (3.65-5.03); Red Cell Distribution Width 14.1 % (13.2-15.2)
[2022-04-09 19:35] LABS: Hematocrit 36.7 % (35.5-45.6); Hemoglobin 13.3 gm/dl (11.8-15.2)
--- NOTE | 2022-04-09 19:42 | Emergency Department Report ---
ED General Adult HPI - General Stated complaint: flu like symptoms Time Seen by Provider: 04/09/22 16:32 Source: patient Mode of arrival: Ambulatory Limitations: No Limitations - History of Present Illness Initial comments: ferer cough congestion and was feeling weak and loghtheded at work today not vaccinated -: Gradual, hour(s) Radiation: non-radiation Severity scale (0 -10): 9 Improves with: none Worsens with: none Associated Symptoms: cough, diaphoresis, fever/chills. denies: denies other symptoms, confusion, chest pain - Related Data Home Medications Medication Instructions Recorded Confirmed Last Taken ALBUTEROL NEB's [Proventil 0.083% 2.5 mg IH QID PRN 05/17/19 05/17/19 05/17/19 NEBS] Previous Rx's Medication Instructions Recorded Last Taken Type Albuterol Mdi (or & Nicu Only) 2 puff IH QID PRN #1 inha 05/20/19 Unknown Rx [ProAir HFA Inhaler] Albuterol Mdi (or & Nicu Only) 2 puff IH QID PRN #8.5 gram 04/09/22 Unknown Rx [ProAir HFA Inhaler] Azithromycin [Zithromax Z-DRU] 250 mg PO DAILY #6 04/09/22 Unknown Rx Brompheniramine/Pseudoephed/Dm 5 ml PO Q6HR PRN #120 syrup 04/09/22 Unknown Rx [Bromfed Dm Cough Syrup] Allergies Allergy/AdvReac Type Severity Reaction Status Date / Time No Known Allergies Allergy Verified 05/17/19 12:18 ED Review of Systems ROS: Stated complaint: flu like symptoms Other details as noted in HPI Constitutional: denies: chills, fever Eyes: denies: eye pain, eye discharge, vision change ENT: denies: ear pain, throat pain Respiratory: denies: cough, shortness of breath, wheezing Cardiovascular: denies: chest pain, palpitations Endocrine: no symptoms reported Gastrointestinal: denies: abdominal pain, nausea, diarrhea Genitourinary: denies: urgency, dysuria Musculoskeletal: denies: back pain, joint swelling, arthralgia Skin: denies: rash, lesions Neurological: denies: headache, weakness, paresthesias Psychiatric: denies: anxiety, depression Hematological/Lymphatic: denies: easy bleeding, easy bruising ED Past Medical Hx - Past Medical History Hx Hypertension: No Hx Liver Disease: No Hx Renal Disease: No Hx Asthma: Yes (albuterol inhaler this morning before arriving at hospital. ) - Surgical History Additional Surgical History: Jaw reconstruction - Social History Smoking Status: Current Every Day Smoker - Medications Home Medications: Home Medications Medication Instructions Recorded Confirmed Last Taken Type ALBUTEROL NEB's [Proventil 0.083% 2.5 mg IH QID PRN 05/17/19 05/17/19 05/17/19 History NEBS] Albuterol Mdi (or & Nicu Only) 2 puff IH QID PRN #1 inha 05/20/19 Unknown Rx [ProAir HFA Inhaler] Albuterol Mdi (or & Nicu Only) 2 puff IH QID PRN #8.5 gram 04/09/22 Unknown Rx [ProAir HFA Inhaler] Azithromycin [Zithromax Z-DRU] 250 mg PO DAILY #6 04/09/22 Unknown Rx Brompheniramine/Pseudoephed/Dm 5 ml PO Q6HR PRN #120 syrup 04/09/22 Unknown Rx [Bromfed Dm Cough Syrup] ED Physical Exam - General General appearance: alert, in no apparent distress - Head Head exam: Present: atraumatic, normocephalic - Eye Eye exam: Present: normal appearance - ENT ENT exam: Present: mucous membranes moist - Neck Neck exam: Present: normal inspection - Respiratory Respiratory exam: Present: normal lung sounds bilaterally. Absent: respiratory distress - Cardiovascular Cardiovascular Exam: Present: regular rate, normal rhythm. Absent: systolic murmur, diastolic murmur, rubs, gallop - GI/Abdominal GI/Abdominal exam: Present: soft, normal bowel sounds - Rectal Rectal exam: Present: deferred - Extremities Exam Extremities exam: Present: normal inspection - Back Exam Back exam: Present: normal inspection - Neurological Exam Neurological exam: Present: alert, oriented X3 - Psychiatric Psychiatric exam: Present: normal affect, normal mood - Skin Skin exam: Present: warm, dry, intact, normal color. Absent: rash ED Course Vital Signs 04/09/22 04/09/22 16:06 17:14 Temperature 100.1 F H Pulse Rate 90 Respiratory 18 20 Rate Blood Pressure 162/94 [Right] O2 Sat by Pulse 98 Oximetry ED Medical Decision Making - Lab Data Result diagrams: 04/09/22 17:19 04/09/22 17:19 - Radiology Data Radiology results: report reviewed, image reviewed - Medical Decision Making work up negative x ray clear o2 sat 99 on RA no distress , fever control Critical care attestation.: If time is entered above; I have spent that time in minutes in the direct care of this critically ill patient, excluding procedure time. ED Disposition Clinical Impression: Fever, Viral infection, URI (upper respiratory infection) Disposition: 01 HOME / SELF CARE / HOMELESS Is pt being admited?: No Does the pt Need Aspirin: No Condition: Stable Instructions: Viral Respiratory Infection, [id number], Fever, Adult
== END 2022-04-09 20:29 | disposition home or self-care (01) ==
LOC: ED 14:36
DX: B34.9 Viral infection, unspecified (principal); J06.9 Acute upper respiratory infection, unspecified; R50.9 Fever, unspecified; J45.909 Unspecified asthma, uncomplicated; F17.200 Nicotine dependence, unspecified, uncomplicated; Z79.899 Other long term (current) drug therapy
CPT/HCPCS: 36415; 71045; 80053; 82550; 84484; 85025; 87040; 99284